=== PATIENT | male | born 1980 | race Caucasian/White ===

== ENCOUNTER 2018-07-21 20:08 | Emergency (ER) | payer SELFPAY ==
[~2018-07-21] VITALS: Ht 162.6 cm; Wt 70.8 kg
[2018-07-21 20:12] VITALS: BP 136/79; Ht 162.6 cm; Wt 70.8 kg
== END 2018-07-21 20:37 | disposition home or self-care (01) ==
LOC: ED 20:08
DX: R21 Rash and other nonspecific skin eruption (principal)